=== PATIENT | female | born 1965 | race Caucasian/White ===

== ENCOUNTER → 2016-12-09 | Outpatient (REF) | payer BC ==
[~2016-12-09] MED LIST: /GLIP10TAB; BENI20TA11; DULO20CA; INSULIN 70/30; OXYB5TAB5; PRIL20CA; [UNRECOGNIZED DRUG - OTHER]
[2016-12-09 19:22] LABS: MEAN CORPUSCULAR HEMOGLOBIN 29.4 pg (27.0-33.0); RED CELL DISTRIBUTION WIDTH 13.3 % (11.5-14.5); WHITE BLOOD COUNT 5.3 K/mm3 (4.0-10.0)
[2016-12-09 19:40] LABS: ALBUMIN/GLOBULIN RATIO 1.33 (1.00-1.93); ALKALINE PHOSPHATASE 82 U/L (45-117); ALT/SGPT 65 U/L (12-78); ANION GAP 7 MEQ/L (8-16); AST/SGOT 71 U/L (15-37); BILIRUBIN,TOTAL 0.3 MG/DL (0.2-1.0); BLOOD UREA NITROGEN 22 MG/DL (7-18); CALCIUM LEVEL 9.6 MG/DL (8.5-10.1); CARBON DIOXIDE LEVEL 33 MEQ/L (21-32); CHLORIDE LEVEL 100 MEQ/L (98-107); CHOLESTEROL LEVEL 198 MG/DL (<200); CREATININE FOR GFR 0.78 MG/DL (0.55-1.02); FREE T4 1.14 NG/DL (0.76-1.46); GLOMERULAR FILTRATION RATE > 60.0 (>51); GLUCOSE, FASTING 296 MG/DL (70-105); POTASSIUM SERUM 5.1 MEQ/L (3.5-5.1); SODIUM LEVEL 140 MEQ/L (136-145); TRIGLYCERIDES LEVEL 734 MG/DL (<150)
== END ==
LOC: M SFHCADAM 16:28
PROVIDERS: ATTEND Family Medicine
DX: G47.33 Obstructive sleep apnea (adult) (pediatric) (principal); F32.9 Major depressive disorder, single episode, unspecified; E11.9 Type 2 diabetes mellitus without complications; E78.4 Other hyperlipidemia

== ENCOUNTER → 2017-01-17 | Outpatient (REF) | payer BC | LOC: M LAB REF 16:58 | DX: H60.8X1 Other otitis externa, right ear (principal) ==

== ENCOUNTER → 2017-02-14 | Outpatient (CLI) | payer BC ==
--- NOTE | 2017-02-14 13:55 | REP ---
CHEST X-RAY PA AND LATERAL: 02/14/2017. CLINICAL HISTORY: Bilateral pneumonia. Comparison 12/05/2013. FINDINGS: Lungs are adequately inflated. There is underlying interstitial chronic changes but new superimposed patchy nodular infiltrates right greater than left. No effusion. Heart is enlarged. There is some left atrial and ventricular enlargement. There is some vascular engorgement without karen edema or effusion. The aorta is mildly tortuous. Airway intact. Bony thorax without focal lesion. IMPRESSION: 1. Some chronic interstitial changes but with new and superimposed patchy nodular infiltrates bilaterally right greater than left. No effusion. 2. Cardiomegaly with left atrial and ventricular enlargement with venous hypertension. No karen edema. Signed by Keven Barker MD 02/14/2017 05:18 P
== END ==
LOC: M ADAMS 12:07
PROVIDERS: ATTEND Physician Assistant Medical
DX: J18.9 Pneumonia, unspecified organism (principal)

== ENCOUNTER → 2017-02-14 | Outpatient (REF) | payer BC | LOC: M SFHCADAM 11:55 | PROVIDERS: ATTEND Physician Assistant Medical | DX: J18.9 Pneumonia, unspecified organism (principal) ==

== ENCOUNTER → 2017-04-21 | Outpatient (REF) | payer BC ==
[2017-04-21 19:56] LABS: ALBUMIN 4.2 GM/DL (3.2-5.2); ALKALINE PHOSPHATASE 69 U/L (45-117); ALT/SGPT 58 U/L (12-78); ANION GAP 6 MEQ/L (8-16); AST/SGOT 41 U/L (15-37); BILIRUBIN,TOTAL 0.4 MG/DL (0.2-1.0); BLOOD UREA NITROGEN 26 MG/DL (7-18); CALCIUM LEVEL 9.3 MG/DL (8.5-10.1); CARBON DIOXIDE LEVEL 32 MEQ/L (21-32); CHLORIDE LEVEL 96 MEQ/L (98-107); CHOLESTEROL LEVEL 199 MG/DL (<200); GLOMERULAR FILTRATION RATE > 60.0 (>51); GLUCOSE, FASTING 243 MG/DL (70-105); POTASSIUM SERUM 5.1 MEQ/L (3.5-5.1); SODIUM LEVEL 134 MEQ/L (136-145); TOTAL PROTEIN 7.2 GM/DL (6.4-8.2); TRIGLYCERIDES LEVEL 633 MG/DL (<150)
== END ==
LOC: M SFHCADAM 16:51
PROVIDERS: ATTEND Physician Assistant
DX: E11.9 Type 2 diabetes mellitus without complications (principal); E78.4 Other hyperlipidemia

== ENCOUNTER → 2017-08-10 | Outpatient (REF) | payer BC ==
[2017-08-10 20:00] LABS: MEAN CORPUSCULAR HEMOGLOBIN 28.3 pg (27.0-33.0); MEAN CORPUSCULAR HGB CONC 31.9 g/dl (32.0-36.5); MEAN CORPUSCULAR VOLUME 88.8 fl (80.0-96.0); RED CELL DISTRIBUTION WIDTH 13.7 % (11.5-14.5); WHITE BLOOD COUNT 5.5 10^3/uL (4.0-10.0)
[2017-08-10 20:21] LABS: VITAMIN B12 LEVEL 391 PG/ML (247-911)
[2017-08-10 20:22] LABS: FOLATE 17.7 NG/ML (>5.4)
[2017-08-10 20:28] LABS: ALBUMIN 3.8 GM/DL (3.2-5.2); ALBUMIN/GLOBULIN RATIO 1.27 (1.00-1.93); ALKALINE PHOSPHATASE 74 U/L (45-117); ALT/SGPT 52 U/L (12-78); ANION GAP 11 MEQ/L (8-16); AST/SGOT 36 U/L (15-37); BILIRUBIN,TOTAL 0.3 MG/DL (0.2-1.0); BLOOD UREA NITROGEN 36 MG/DL (7-18); CALCIUM LEVEL 9.3 MG/DL (8.5-10.1); CARBON DIOXIDE LEVEL 27 MEQ/L (21-32); CHLORIDE LEVEL 98 MEQ/L (98-107); CHOLESTEROL LEVEL 191 MG/DL (<200); CREATININE FOR GFR 1.05 MG/DL (0.55-1.02); GLOMERULAR FILTRATION RATE 59.1 (>51); GLUCOSE, FASTING 302 MG/DL (70-105); POTASSIUM SERUM 4.5 MEQ/L (3.5-5.1); SODIUM LEVEL 136 MEQ/L (136-145); TOTAL PROTEIN 6.8 GM/DL (6.4-8.2); TRIGLYCERIDES LEVEL 696 MG/DL (<150)
== END ==
LOC: M SFHCADAM 15:44
PROVIDERS: ATTEND Family Medicine
DX: E11.9 Type 2 diabetes mellitus without complications (principal); F32.9 Major depressive disorder, single episode, unspecified; R53.83 Other fatigue; E55.9 Vitamin D deficiency, unspecified; E78.4 Other hyperlipidemia

== ENCOUNTER → 2018-01-24 | Outpatient (REF) | payer BC | LOC: M LAB REF 09:35 | DX: J02.9 Acute pharyngitis, unspecified (principal) | CPT/HCPCS: 87070 ==

== ENCOUNTER → 2018-04-12 | Outpatient (REF) | payer BC ==
[2018-04-12 19:48] LABS: APPEARANCE, URINE CLEAR (CLEAR); BACTERIA, URINE AUTO NEGATIVE (NEGATIVE); BILIRUBIN, URINE AUTO NEGATIVE (NEGATIVE); BLOOD, URINE BLOOD NEGATIVE (NEGATIVE); COLOR, URINE STRAW (YELLOW); GLUCOSE, URINE (UA) AUTO 3+ mg/dL (NEGATIVE); KETONE, URINE AUTO NEGATIVE (NEGATIVE); LEUKOCYTE ESTERASE, URINE AUTO NEGATIVE (NEGATIVE); NITRITE, URINE AUTO NEGATIVE (NEGATIVE); PROTEIN, URINE AUTO 1+ mg/dL (NEGATIVE); RBC, URINE AUTO 0 /HPF (0-3); SPECIFIC GRAVITY URINE AUTO 1.026 (1.002-1.035); SQUAMOUS EPITHELIAL CELL UR AU 0 /HPF (0-6); UROBILINOGEN, URINE AUTO 0.2 mg/dL (0.0-2.0); WBC, URINE AUTO 0 /HPF (0-3)
[2018-04-12 19:54] LABS: ALBUMIN/GLOBULIN RATIO 1.25 (1.00-1.93); ALKALINE PHOSPHATASE 100 U/L (45-117); ALT/SGPT 42 U/L (12-78); ANION GAP 9 MEQ/L (8-16); AST/SGOT 37 U/L (7-37); BILIRUBIN,TOTAL 0.3 MG/DL (0.2-1.0); BLOOD UREA NITROGEN 22 MG/DL (7-18); CALCIUM LEVEL 9.3 MG/DL (8.5-10.1); CARBON DIOXIDE LEVEL 30 MEQ/L (21-32); CHLORIDE LEVEL 96 MEQ/L (98-107); CREATININE FOR GFR 0.91 MG/DL (0.55-1.30); GLOMERULAR FILTRATION RATE > 60.0 (>51); POTASSIUM SERUM 4.2 MEQ/L (3.5-5.1); SODIUM LEVEL 135 MEQ/L (136-145); TOTAL PROTEIN 7.2 GM/DL (6.4-8.2)
[2018-04-12 20:01] LABS: ESTIMATED AVERAGE GLUCOSE 286 MG/DL (60-110); HEMOGLOBIN A1c 11.6 %
[2018-04-12 20:03] LABS: GLUCOSE, FASTING 439 MG/DL (70-100)
[2018-04-12 20:15] LABS: CREATININE, URINE 25.8 MG/DL; MAU/CREAT RATIO 1201.5 MCG/MG (0.0-30.0)
== END ==
LOC: M SFHCADAM 10:18
DX: N39.498 Other specified urinary incontinence (principal); E11.9 Type 2 diabetes mellitus without complications
CPT/HCPCS: 80053

== ENCOUNTER → 2018-09-30 | Outpatient (REF) | payer BC ==
[2018-10-01 20:08] LABS: CHLAMYDIA DNA AMPLIFICATION NEGATIVE (NEGATIVE); GC DNA AMPLIFICATION NEGATIVE (NEGATIVE)
== END ==
LOC: M SFHCLERA 17:41
DX: R30.0 Dysuria (principal)
CPT/HCPCS: 87086

== ENCOUNTER 2019-01-05 15:35 | Emergency (ER) | payer BC ==
[~2019-01-05] VITALS: Ht 165.1 cm; Wt 125.9 kg
[2019-01-05] MEDS ORDERED: KETOROLAC 60 MG/2 ML VIAL (J1885) IM ONE (16:30)
[2019-01-05] MEDS ORDERED: diazePAM 5 MG TAB PO ONE (16:30)
[2019-01-05] MEDS ORDERED: CITA-231 PO (16:40)
[2019-01-05] MEDS ORDERED: METF-877 PO (16:40)
[2019-01-05] MEDS ORDERED: FENO134C PO (16:40)
[2019-01-05] MEDS ORDERED: OLME1TAB15 PO (16:40)
[2019-01-05] MEDS ORDERED: LOPR1TAB6 PO (16:40)
[2019-01-05] MEDS ORDERED: BUPR300T34 PO (16:40)
[2019-01-05] MEDS ORDERED: BUSP5TA PO (16:40)
[2019-01-05] MEDS ORDERED: TRUL0.5I SC (16:40)
[2019-01-05] MEDS ORDERED: INSUH10VL SC (16:40)
[2019-01-05] MEDS ORDERED: ROSU20TA4 PO (16:40)
--- NOTE | 2019-01-05 17:20 | REP ---
Clinical: Trauma/fall. Technique: AP, lateral, bilateral oblique and coned-down views of the lumbosacral spine. Findings: Osteopenia and moderate degenerative changes are appreciated. No obvious acute fracture / compression injury or subluxation. Impression: No acute fracture / compression injury or subluxation identified. Electronically Signed by Rk Dobbs MD 01/05/2019 05:11 P
--- NOTE | 2019-01-05 17:21 | REP ---
Clinical: thoracic pain. Fall. Technique: AP, lateral, and swimmers views. Findings: Alignment and kyphosis is maintained. Vertebral bodies intact. No acute fracture / compression injury or subluxation. Impression: No acute fracture / compression injury or subluxation. Electronically Signed by Rk Dobbs MD 01/05/2019 05:13 P
[2019-01-05] MEDS ORDERED: IBUP-1022 PO (17:35)
[2019-01-05] MEDS ORDERED: VALI10TA PO (17:35)
[2019-01-05] MEDS ORDERED: VALI5TAB PO (17:37)
[2019-01-05 17:47] VITALS: BP 137/63
== END 2019-01-05 17:49 | disposition home or self-care (01) ==
LOC: M ED 15:35
DX: S20.229A Contusion of unspecified back wall of thorax, initial encounter (principal); S30.0XXA Contusion of lower back and pelvis, initial encounter; W17.89XA Other fall from one level to another, initial encounter; Y92.531 Health care provider office as the place of occurrence of the external cause; I10 Essential (primary) hypertension; E11.9 Type 2 diabetes mellitus without complications; F33.9 Major depressive disorder, recurrent, unspecified; F41.9 Anxiety disorder, unspecified; G47.33 Obstructive sleep apnea (adult) (pediatric); Z99.89 Dependence on other enabling machines and devices; Z79.899 Other long term (current) drug therapy; Z79.4 Long term (current) use of insulin; Z88.2 Allergy status to sulfonamides; Z91.040 Latex allergy status
CPT/HCPCS: 72070; 72110; 96372; 99284; J1885

== ENCOUNTER → 2020-04-14 | Outpatient (CLI) | payer BC ==
[~2020-04-14] MED LIST changes: +BUPR300T92 PO; +BUSP5TA PO; +CITA40TA6 PO; +CYMB1CAP4; -DULO20CA; +FENO134C PO; +IBUP-1022 PO; +INSUH10VL SC; +LOPR1TAB6 PO; +METF-877 PO; +OLME1TAB47 PO; +ROSU20TA5 PO; +TRUL0.5I SC; +VALI10TA PO; +VALI5TAB PO
--- NOTE | 2020-04-14 14:40 | REP ---
HIDA SCAN WITH GALLBLADDER EJECTION FRACTION: Following the intravenous administration of 6.6 mCi technetium 99m mebrofenin, multiple images of the right upper quadrant are performed every 5 minutes for a period of 1 hour. The gallbladder is visualized at 20 minutes postinjection. There is [id number] transit at 15 minutes postinjection. There is no scintigraphic evidence of cholecystitis. At the 1-hour josé luis, 8 ounces of Ensure Enlive is ingested and further imaging performed for 1 hour. Gallbladder activity is measured. Gallbladder ejection fraction is calculated to be 30%, which is below normal of 35% or greater. IMPRESSION: Mildly low gallbladder ejection fraction of 30%. Electronically Signed by Florencio Couch MD 04/14/2020 11:02 P
== END ==
LOC: M RAD 08:19
PROVIDERS: ATTEND Preventive Medicine Undersea and Hyperbaric Medicine
DX: R10.11 Right upper quadrant pain (principal)
CPT/HCPCS: 78227; A9537

== ENCOUNTER 2023-01-04 22:19 | Emergency (ER) | payer BC ==
[~2023-01-04] VITALS: Ht 165.1 cm; Wt 134.1 kg
[~2023-01-04 22:19] MED LIST changes: -FENO134C PO; +FENO134C20 PO; -OLME1TAB47 PO; +OLME1TAB53 PO
[2023-01-04] MEDS ORDERED: ONDANSETRON 4MG ORAL DISINTEGRATING TAB PO ONE (23:20)
[2023-01-04] MEDS ORDERED: KETOROLAC 60MG 2ML VIAL IM ONE (23:20)
[2023-01-04 23:49] LABS: ETHYL ALCOHOL (ETHANOL) < 0.003 % (0.000-0.010); HEMATOCRIT 47.2 % (36.0-47.0); HEMOGLOBIN 15.3 g/dl (12.0-15.5); MEAN CORPUSCULAR HEMOGLOBIN 28.2 pg (27.0-33.0); MEAN CORPUSCULAR HGB CONC 32.4 g/dl (32.0-36.5); MEAN CORPUSCULAR VOLUME 87.1 fl (80.0-96.0); PLATELET COUNT, AUTOMATED 243 10^3/uL (150-450); RED BLOOD COUNT 5.42 10^6/uL (4.00-5.40); WHITE BLOOD COUNT 9.4 10^3/uL (4.0-10.0)
[2023-01-04 23:51] LABS: ACETAMINOPHEN LEVEL < 2.0 UG/ML (10.0-20.0); SALICYLATE LEVEL < 3.0 MG/DL (<30)
[2023-01-04 23:55] LABS: ALBUMIN 3.7 G/DL (3.2-5.2); ALKALINE PHOSPHATASE 81 U/L (46-116); ALT/SGPT 40 U/L (7.0-40); AST/SGOT 39 U/L (<34); BILIRUBIN,DIRECT < 0.1 MG/DL (<0.4); BILIRUBIN,TOTAL 0.4 MG/DL (0.3-1.2); BLOOD UREA NITROGEN 32 MG/DL (9-23); CALCIUM LEVEL 10.2 MG/DL (8.5-10.1); CARBON DIOXIDE LEVEL 24 MMOL/L (20-31); CHLORIDE LEVEL 101 MMOL/L (98-107); CREATININE FOR GFR 0.96 MG/DL (0.55-1.30); GLOMERULAR FILTRATION RATE > 60.0 (>51); GLUCOSE, FASTING 254 MG/DL (60-100); POTASSIUM SERUM 4.2 MMOL/L (3.5-5.1); SODIUM LEVEL 135 MMOL/L (136-145); THYROID STIMULATING HORMONE 4.028 uIU/ML (0.55-4.78); TOTAL PROTEIN 6.7 G/DL (5.7-8.2)
[2023-01-05 00:02] LABS: AMPHETAMINES LEVEL URINE NEGATIVE (NEGATIVE); BARBITURATES URINE NEGATIVE (NEGATIVE); BENZODIAZEPINES URINE NEGATIVE (NEGATIVE); CANNABINOIDS URINE NEGATIVE (NEGATIVE); COCAINE METABOLITE URINE NEGATIVE (NEGATIVE); METHADONE URINE NEGATIVE (NEGATIVE); OPIATES URINE NEGATIVE (NEGATIVE); PHENCYCLIDINE URINE NEGATIVE (NEGATIVE)
[2023-01-05] MEDS ORDERED: OLME1TAB53 PO (00:55)
[2023-01-05] MEDS ORDERED: BUSP10TA PO (00:55)
[2023-01-05] MEDS ORDERED: NYST1POW9 TOP (00:55)
[2023-01-05] MEDS ORDERED: CELE40TA PO (00:55)
[2023-01-05] MEDS ORDERED: OMEP-173 PO (00:55)
[2023-01-05] MEDS ORDERED: METO100T5 PO (00:55)
[2023-01-05] MEDS ORDERED: BASA100I SC (00:55)
[2023-01-05] MEDS ORDERED: HOME MED LIST COMPLETE! XX SCH (00:55)
[2023-01-05] MEDS ORDERED: ROSU40TA4 PO (00:55)
[2023-01-05] MEDS ORDERED: OXYB10TA23 PO (00:55)
[2023-01-05] MEDS ORDERED: FARX1TAB5 PO (00:55)
[2023-01-05] MEDS ORDERED: FENO145T7 PO (00:55)
[2023-01-05] MEDS ORDERED: DULA3PEN SC (00:55)
[2023-01-05 01:54] LABS: APPEARANCE, URINE CLEAR (CLEAR); BACTERIA, URINE AUTO NEGATIVE (NEGATIVE); BILIRUBIN, URINE AUTO NEGATIVE (NEGATIVE); BLOOD, URINE BLOOD NEGATIVE (NEGATIVE); COLOR, URINE YELLOW (YELLOW); GLUCOSE, URINE (UA) AUTO 3+ mg/dL (NEGATIVE); KETONE, URINE AUTO TRACE mg/dL (NEGATIVE); LEUKOCYTE ESTERASE, URINE AUTO NEGATIVE (NEGATIVE); NITRITE, URINE AUTO NEGATIVE (NEGATIVE); PROTEIN, URINE AUTO 2+ mg/dL (NEGATIVE); RBC, URINE AUTO 1 /HPF (0-3); SPECIFIC GRAVITY URINE AUTO 1.025 (1.002-1.035); SQUAMOUS EPITHELIAL CELL UR AU 1 /HPF (0-6); UROBILINOGEN, URINE AUTO 0.2 mg/dL (0.0-2.0); WBC, URINE AUTO 1 /HPF (0-3)
[2023-01-05] MEDS ORDERED: diphenhydrAMINE 25MG CAP PO ONE (02:00)
[2023-01-05] MEDS ORDERED: LEVEMIR (INSULIN DETEMIR) 1 UNITS/0.01ML SC SCH (09:00)
[2023-01-05] MEDS ORDERED: METOPROLOL TART 50 MG TAB PO SCH (09:00)
[2023-01-05] MEDS ORDERED: OLMESARTAN MEDOXOMIL 20 MG TAB (BENICAR) PO SCH (09:00)
[2023-01-05] MEDS ORDERED: oxyBUTYnin *DITROPAN XL* 5 MG TABCR PO SCH (09:00)
[2023-01-05] MEDS ORDERED: OMEPRAZOLE 20MG CAP PO SCH (09:00)
[2023-01-05] MEDS: INSULIN LISPRO (NovoLOG) PER UNIT SC SCH ×2 (12:17→18:30)
[2023-01-05 19:39] VITALS: BP 139/67
[2023-01-05] MEDS ORDERED: ROSUVASTATIN 10 MG TAB (CRESTOR) PO SCH (21:00)
[2023-01-05] MEDS ORDERED: FENOFIBRATE 145MG TABLET (TRICOR) PO SCH (21:00)
[2023-01-05] MEDS ORDERED: INSULIN LISPRO (NovoLOG) PER UNIT SC SCH (21:00)
[2023-01-05] MEDS ORDERED: buPROPion **XL** TABLET 150MG (WELLBUTRIN XL) PO SCH (21:00)
== END 2023-01-05 19:48 ==
LOC: M ED 22:19
DX: R45.851 Suicidal ideations (principal); E11.9 Type 2 diabetes mellitus without complications; Z91.14 Patient's other noncompliance with medication regimen; G43.909 Migraine, unspecified, not intractable, without status migrainosus; F32.9 Major depressive disorder, single episode, unspecified; Z91.51 Personal history of suicidal behavior
CPT/HCPCS: 80048; 80076; 80143; 80307; 81001; 82077; 84443; 85027; 87635; 93005; 96372; 99284; J1815; J1885

== ENCOUNTER 2023-03-16 15:28 | Inpatient (IN) | payer BC ==
[~2023-03-16] VITALS: Ht 165.1 cm; Wt 128.6 kg
[~2023-03-16 15:28] MED LIST changes: +BASA100I SC; +BUSP10TA PO; +CELE40TA PO; +DULA3PEN SC; +FARX1TAB5 PO; +FENO145T7 PO; +METO100T5 PO; +NYST1POW9 TOP; +OMEP-173 PO; +OXYB10TA23 PO; +ROSU40TA4 PO
[2023-03-16] MEDS ORDERED: DULO-34 (16:16)
[2023-03-16] MEDS ORDERED: MIRT1TAB (16:16)
[2023-03-16 16:37] LABS: HEMATOCRIT 44.5 % (36.0-47.0); HEMOGLOBIN 14.1 g/dl (12.0-15.5); MEAN CORPUSCULAR HEMOGLOBIN 27.9 pg (27.0-33.0); MEAN CORPUSCULAR HGB CONC 31.7 g/dl (32.0-36.5); MEAN CORPUSCULAR VOLUME 87.9 fl (80.0-96.0); PLATELET COUNT, AUTOMATED 189 10^3/uL (150-450); RED BLOOD COUNT 5.06 10^6/uL (4.00-5.40); WHITE BLOOD COUNT 5.3 10^3/uL (4.0-10.0)
[2023-03-16 17:06] LABS: AMPHETAMINES LEVEL URINE NEGATIVE (NEGATIVE); BARBITURATES URINE NEGATIVE (NEGATIVE); BENZODIAZEPINES URINE NEGATIVE (NEGATIVE); CANNABINOIDS URINE NEGATIVE (NEGATIVE); COCAINE METABOLITE URINE NEGATIVE (NEGATIVE); METHADONE URINE NEGATIVE (NEGATIVE); OPIATES URINE NEGATIVE (NEGATIVE); PHENCYCLIDINE URINE NEGATIVE (NEGATIVE)
[2023-03-16 17:08] LABS: ETHYL ALCOHOL (ETHANOL) < 0.003 % (0.000-0.010)
[2023-03-16 17:09] LABS: ACETAMINOPHEN LEVEL < 2.0 UG/ML (10.0-20.0); SALICYLATE LEVEL < 3.0 MG/DL (<30)
[2023-03-16 17:14] LABS: ALBUMIN 3.5 G/DL (3.2-5.2); ALKALINE PHOSPHATASE 84 U/L (46-116); ALT/SGPT 35 U/L (7.0-40); AST/SGOT 45 U/L (<34); BILIRUBIN,DIRECT 0.1 MG/DL (<0.4); BILIRUBIN,TOTAL 0.4 MG/DL (0.3-1.2); BLOOD UREA NITROGEN 31 MG/DL (9-23); CALCIUM LEVEL 10.3 MG/DL (8.5-10.1); CARBON DIOXIDE LEVEL 28 MMOL/L (20-31); CHLORIDE LEVEL 104 MMOL/L (98-107); CREATININE FOR GFR 0.58 MG/DL (0.55-1.30); GLOMERULAR FILTRATION RATE > 60.0 (>51); GLUCOSE, FASTING 419 MG/DL (60-100); POTASSIUM SERUM 4.6 MMOL/L (3.5-5.1); SODIUM LEVEL 135 MMOL/L (136-145); THYROID STIMULATING HORMONE 1.465 uIU/ML (0.55-4.78); TOTAL PROTEIN 6.8 G/DL (5.7-8.2)
[2023-03-16 17:41] LABS: HEMOGLOBIN A1c 10.6 % (4.0-6.0)
[2023-03-16] MEDS ORDERED: ACETAMINOPHEN TAB 650MG DOSE (2X325MG) PO ONE (20:25)
[2023-03-16] MEDS ORDERED: traZODone 50 MG TAB PO PRN (20:50)
[2023-03-16] MEDS ORDERED: OLANZapine ORAL DISINTEGRATING TAB 5MG PO PRN (20:50)
[2023-03-16] MEDS ORDERED: MOM 30ML SUSPENSION UDC PO PRN (20:50)
[2023-03-16] MEDS ORDERED: MAALOX 30 ML SUSP *UDC PO PRN (20:50)
[2023-03-16] MEDS: METOPROLOL TART 50 MG TAB PO SCH (21:00)
[2023-03-16] MEDS ORDERED: LEVEMIR (INSULIN DETEMIR) 1 UNITS/0.01ML SC SCH (21:00)
[2023-03-16] MEDS: NYSTATIN 100,000 UNITS/GM TOPICAL PWD 15GM TOP SCH (21:00)
[2023-03-16] MEDS ORDERED: GLUCOSE 4GM CHEW TABLET PO PRN ×2 (22:10→22:20)
[2023-03-16] MEDS ORDERED: DEXTROSE 50% 50ML SYRINGE IV PRN ×2 (22:10→22:20)
[2023-03-16] MEDS ORDERED: GLUCAGON INJ 1MG VIAL SC PRN ×2 (22:10→22:20)
[2023-03-16] MEDS ORDERED: LEVEMIR (INSULIN DETEMIR) 1 UNITS/0.01ML SC ONE (22:10)
[2023-03-16] MEDS ORDERED: OXYB5TAB10 PO (22:28)
[2023-03-16] MEDS ORDERED: INSUH10VL SC (22:28)
[2023-03-16] MEDS ORDERED: DULO-34 PO (22:28)
[2023-03-16] MEDS ORDERED: HYDR50TA70 PO (22:28)
[2023-03-16] MEDS ORDERED: MIRT1TAB PO (22:28)
[2023-03-16] MEDS ORDERED: HOME MED LIST COMPLETE! XX SCH (22:30)
[2023-03-16] MEDS: INSULIN LISPRO (NovoLOG) PER UNIT SC SCH (22:58)
[2023-03-16 23:49] VITALS: BP 158/80
[2023-03-17 05:36] VITALS: BP 148/82
[2023-03-17] MEDS: OMEPRAZOLE 20MG CAP PO SCH ×2 (06:05→11:53)
[2023-03-17] MEDS: oxyBUTYnin 5 MG TAB PO SCH ×2 (06:06→11:53)
[2023-03-17] MEDS: INSULIN LISPRO (NovoLOG) PER UNIT SC SCH ×5 (06:42→21:27)
[2023-03-17] MEDS ORDERED: INSULIN LISPRO (NovoLOG) PER UNIT SC SCH ×5 (07:30→21:00)
[2023-03-17] MEDS: DAPAGLIFLOZIN PROPANEDIOL 10MG TABLET (FARXIGA) PO SCH (08:47)
[2023-03-17] MEDS: PILL CUTTER 1 EACH XX PRN (08:47)
[2023-03-17] MEDS: METOPROLOL TART 50 MG TAB PO SCH ×2 (08:49→21:22)
[2023-03-17] MEDS: metFORMIN (GLUCOPHAGE) 1000MG TABLET PO SCH ×2 (08:50→17:26)
[2023-03-17] MEDS: NYSTATIN 100,000 UNITS/GM TOPICAL PWD 15GM TOP SCH ×2 (08:51→21:00)
[2023-03-17] MEDS: FUROSEMIDE 20 MG TAB PO SCH (13:28)
[2023-03-17] MEDS: CLOBETASOL PROP 0.05% OINT 30 GM TOP SCH ×2 (15:32→21:21)
[2023-03-17] MEDS: CALCIPOTRIENE CREAM 0.005% 60GM TOP SCH ×2 (15:34→21:20)
[2023-03-17 17:23] VITALS: BP 150/84
[2023-03-17] MEDS: ROSUVASTATIN 10 MG TAB (CRESTOR) PO SCH (17:25)
[2023-03-17] MEDS: DULoxetine 20MG CAP (CYMBALTA) PO SCH (17:26)
[2023-03-17] MEDS: ACETAMINOPHEN TAB 650MG DOSE (2X325MG) PO PRN (17:27)
[2023-03-17] MEDS: OLMESARTAN MEDOXOMIL 20 MG TAB (BENICAR) PO SCH (17:27)
[2023-03-17] MEDS ORDERED: LEVEMIR (INSULIN DETEMIR) 1 UNITS/0.01ML SC SCH (21:00)
[2023-03-17] MEDS: BREXPIPRAZOLE 0.5MG TABLET (REXULTI) PO SCH (21:21)
[2023-03-17] MEDS: MIRTAZAPINE 7.5MG PER 1/2 TABLET PO PRN (21:22)
[2023-03-18] MEDS: oxyBUTYnin 5 MG TAB PO SCH ×2 (06:10→11:10)
[2023-03-18] MEDS: OMEPRAZOLE 20MG CAP PO SCH ×2 (06:10→11:10)
[2023-03-18] MEDS: INSULIN LISPRO (NovoLOG) PER UNIT SC SCH ×7 (06:59→21:05)
[2023-03-18 07:00] VITALS: BP 152/90
[2023-03-18] MEDS: metFORMIN (GLUCOPHAGE) 1000MG TABLET PO SCH ×2 (07:37→17:20)
[2023-03-18 07:38] LABS: BLOOD UREA NITROGEN 28 MG/DL (9-23); CALCIUM LEVEL 9.3 MG/DL (8.5-10.1); CARBON DIOXIDE LEVEL 29 MMOL/L (20-31); CHLORIDE LEVEL 103 MMOL/L (98-107); CHOLESTEROL LEVEL 207 MG/DL (<200); CHOLESTEROL RISK RATIO 8.66 (<5); CREATININE FOR GFR 0.62 MG/DL (0.55-1.30); GLOMERULAR FILTRATION RATE > 60.0 (>51); GLUCOSE, FASTING 247 MG/DL (60-100); HDL CHOLESTEROL 23.9 MG/DL (>40); NON-HDL-C 183.1 MG/DL; POTASSIUM SERUM 4.5 MMOL/L (3.5-5.1); SODIUM LEVEL 140 MMOL/L (136-145); TRIGLYCERIDES LEVEL 703 MG/DL (<150)
[2023-03-18] MEDS: FUROSEMIDE 20 MG TAB PO SCH (08:13)
[2023-03-18] MEDS: METOPROLOL TART 50 MG TAB PO SCH ×2 (08:14→21:04)
[2023-03-18] MEDS: DAPAGLIFLOZIN PROPANEDIOL 10MG TABLET (FARXIGA) PO SCH (08:15)
[2023-03-18] MEDS: PILL CUTTER 1 EACH XX PRN (08:15)
[2023-03-18] MEDS: CLOBETASOL PROP 0.05% OINT 30 GM TOP SCH ×2 (08:17→21:05)
[2023-03-18] MEDS: NYSTATIN 100,000 UNITS/GM TOPICAL PWD 15GM TOP SCH ×2 (08:21→20:59)
[2023-03-18] MEDS: CALCIPOTRIENE CREAM 0.005% 60GM TOP SCH ×2 (08:23→21:06)
[2023-03-18] MEDS: GABAPENTIN 100 MG CAP PO SCH ×3 (11:10→21:04)
[2023-03-18 17:17] VITALS: BP 170/98
[2023-03-18] MEDS: ROSUVASTATIN 10 MG TAB (CRESTOR) PO SCH (17:18)
[2023-03-18] MEDS: DULoxetine 20MG CAP (CYMBALTA) PO SCH (17:19)
[2023-03-18] MEDS: OLMESARTAN MEDOXOMIL 20 MG TAB (BENICAR) PO SCH (17:19)
[2023-03-18 18:00] VITALS: BP 160/86
[2023-03-18] MEDS: BREXPIPRAZOLE 0.5MG TABLET (REXULTI) PO SCH (21:04)
[2023-03-18] MEDS: MIRTAZAPINE 7.5MG PER 1/2 TABLET PO PRN (21:05)
[2023-03-18] MEDS: LEVEMIR (INSULIN DETEMIR) 1 UNITS/0.01ML SC SCH (21:05)
[2023-03-19] MEDS: OMEPRAZOLE 20MG CAP PO SCH ×2 (06:17→12:05)
[2023-03-19] MEDS: oxyBUTYnin 5 MG TAB PO SCH ×2 (06:17→12:05)
[2023-03-19 06:22] VITALS: BP 146/71
[2023-03-19] MEDS: INSULIN LISPRO (NovoLOG) PER UNIT SC SCH ×7 (07:30→21:31)
[2023-03-19] MEDS: PILL CUTTER 1 EACH XX PRN (07:32)
[2023-03-19] MEDS: metFORMIN (GLUCOPHAGE) 1000MG TABLET PO SCH ×2 (07:34→17:05)
[2023-03-19] MEDS: DAPAGLIFLOZIN PROPANEDIOL 10MG TABLET (FARXIGA) PO SCH (07:34)
[2023-03-19] MEDS: METOPROLOL TART 50 MG TAB PO SCH ×2 (07:35→21:28)
[2023-03-19] MEDS: FUROSEMIDE 20 MG TAB PO SCH (07:36)
[2023-03-19] MEDS: GABAPENTIN 100 MG CAP PO SCH ×3 (07:36→21:08)
[2023-03-19] MEDS: NYSTATIN 100,000 UNITS/GM TOPICAL PWD 15GM TOP SCH ×2 (07:36→21:00)
[2023-03-19] MEDS: CALCIPOTRIENE CREAM 0.005% 60GM TOP SCH ×2 (07:37→21:09)
[2023-03-19] MEDS: CLOBETASOL PROP 0.05% OINT 30 GM TOP SCH ×2 (07:37→21:09)
[2023-03-19 16:31] VITALS: BP 106/58
[2023-03-19 16:39] VITALS: BP 121/56
[2023-03-19] MEDS: ROSUVASTATIN 10 MG TAB (CRESTOR) PO SCH (17:05)
[2023-03-19] MEDS: DULoxetine 20MG CAP (CYMBALTA) PO SCH (17:05)
[2023-03-19 18:17] VITALS: BP 133/70
[2023-03-19] MEDS: OLMESARTAN MEDOXOMIL 20 MG TAB (BENICAR) PO SCH (18:19)
[2023-03-19] MEDS: LEVEMIR (INSULIN DETEMIR) 1 UNITS/0.01ML SC SCH (21:07)
[2023-03-19] MEDS: BREXPIPRAZOLE 0.5MG TABLET (REXULTI) PO SCH (21:08)
[2023-03-19] MEDS: MIRTAZAPINE 7.5MG PER 1/2 TABLET PO PRN (21:32)
[2023-03-20] MEDS: OMEPRAZOLE 20MG CAP PO SCH ×2 (06:16→12:02)
[2023-03-20] MEDS: oxyBUTYnin 5 MG TAB PO SCH ×2 (06:16→12:03)
[2023-03-20 06:41] VITALS: BP 169/80
[2023-03-20] MEDS: ACETAMINOPHEN TAB 650MG DOSE (2X325MG) PO PRN (07:22)
[2023-03-20] MEDS: INSULIN LISPRO (NovoLOG) PER UNIT SC SCH ×7 (07:25→21:09)
[2023-03-20] MEDS: metFORMIN (GLUCOPHAGE) 1000MG TABLET PO SCH ×2 (07:26→17:15)
[2023-03-20] MEDS: NYSTATIN 100,000 UNITS/GM TOPICAL PWD 15GM TOP SCH ×2 (08:17→21:00)
[2023-03-20] MEDS: CALCIPOTRIENE CREAM 0.005% 60GM TOP SCH ×2 (08:20→21:10)
[2023-03-20] MEDS: DAPAGLIFLOZIN PROPANEDIOL 10MG TABLET (FARXIGA) PO SCH (08:20)
[2023-03-20] MEDS: CLOBETASOL PROP 0.05% OINT 30 GM TOP SCH ×2 (08:20→21:10)
[2023-03-20] MEDS: PILL CUTTER 1 EACH XX PRN (08:20)
[2023-03-20] MEDS: FUROSEMIDE 20 MG TAB PO SCH (08:21)
[2023-03-20] MEDS: GABAPENTIN 100 MG CAP PO SCH ×3 (08:21→21:11)
[2023-03-20] MEDS: METOPROLOL TART 50 MG TAB PO SCH ×2 (08:21→21:12)
[2023-03-20 17:05] VITALS: BP 149/77
[2023-03-20] MEDS: OLMESARTAN MEDOXOMIL 20 MG TAB (BENICAR) PO SCH (17:14)
[2023-03-20] MEDS: DULoxetine 20MG CAP (CYMBALTA) PO SCH (17:15)
[2023-03-20] MEDS: ROSUVASTATIN 10 MG TAB (CRESTOR) PO SCH (17:15)
[2023-03-20] MEDS: LEVEMIR (INSULIN DETEMIR) 1 UNITS/0.01ML SC SCH (21:09)
[2023-03-20] MEDS: MIRTAZAPINE 7.5MG PER 1/2 TABLET PO PRN (21:11)
[2023-03-20] MEDS: BREXPIPRAZOLE 0.5MG TABLET (REXULTI) PO SCH (21:11)
[2023-03-21 06:21] VITALS: BP 160/90
[2023-03-21] MEDS: OMEPRAZOLE 20MG CAP PO SCH ×2 (06:33→12:20)
[2023-03-21] MEDS: oxyBUTYnin 5 MG TAB PO SCH ×2 (06:33→12:20)
[2023-03-21] MEDS: INSULIN LISPRO (NovoLOG) PER UNIT SC SCH ×7 (06:48→21:20)
[2023-03-21] MEDS: DAPAGLIFLOZIN PROPANEDIOL 10MG TABLET (FARXIGA) PO SCH (08:32)
[2023-03-21] MEDS: FUROSEMIDE 20 MG TAB PO SCH (08:32)
[2023-03-21] MEDS: GABAPENTIN 100 MG CAP PO SCH (08:32)
[2023-03-21] MEDS: METOPROLOL TART 50 MG TAB PO SCH ×2 (08:32→21:13)
[2023-03-21] MEDS: metFORMIN (GLUCOPHAGE) 1000MG TABLET PO SCH ×2 (08:32→17:11)
[2023-03-21] MEDS: CLOBETASOL PROP 0.05% OINT 30 GM TOP SCH ×2 (08:33→21:11)
[2023-03-21] MEDS: CALCIPOTRIENE CREAM 0.005% 60GM TOP SCH ×2 (08:33→21:12)
[2023-03-21] MEDS: NYSTATIN 100,000 UNITS/GM TOPICAL PWD 15GM TOP SCH ×2 (08:33→21:00)
[2023-03-21] MEDS: GABAPENTIN 400MG CAP PO SCH ×2 (16:31→21:12)
[2023-03-21] MEDS: DULoxetine 20MG CAP (CYMBALTA) PO SCH (17:11)
[2023-03-21] MEDS: ROSUVASTATIN 10 MG TAB (CRESTOR) PO SCH (17:11)
[2023-03-21] MEDS: OLMESARTAN MEDOXOMIL 20 MG TAB (BENICAR) PO SCH (17:13)
[2023-03-21 18:00] VITALS: BP 140/80
[2023-03-21] MEDS: BREXPIPRAZOLE 0.5MG TABLET (REXULTI) PO SCH (21:12)
[2023-03-21] MEDS: MIRTAZAPINE 7.5MG PER 1/2 TABLET PO PRN (21:12)
[2023-03-21] MEDS: LEVEMIR (INSULIN DETEMIR) 1 UNITS/0.01ML SC SCH (21:19)
[2023-03-22] MEDS: OMEPRAZOLE 20MG CAP PO SCH ×2 (06:22→11:23)
[2023-03-22] MEDS: oxyBUTYnin 5 MG TAB PO SCH ×2 (06:23→11:23)
[2023-03-22 06:31] VITALS: BP 140/78
[2023-03-22] MEDS ORDERED: FURO20TA2 PO (06:39)
[2023-03-22] MEDS ORDERED: REXU1TAB3 PO (06:39)
[2023-03-22] MEDS ORDERED: CALC0.009 TOP (06:39)
[2023-03-22] MEDS ORDERED: GABA600T4 PO (06:39)
[2023-03-22] MEDS ORDERED: Clobetasol Propionate 0.05% TOP (06:39)
[2023-03-22] MEDS: INSULIN LISPRO (NovoLOG) PER UNIT SC SCH ×4 (06:55→11:27)
[2023-03-22 07:37] VITALS: BP 140/78
[2023-03-22] MEDS: METOPROLOL TART 50 MG TAB PO SCH (07:37)
[2023-03-22] MEDS: metFORMIN (GLUCOPHAGE) 1000MG TABLET PO SCH (07:37)
[2023-03-22] MEDS: CALCIPOTRIENE CREAM 0.005% 60GM TOP SCH (07:38)
[2023-03-22] MEDS: DAPAGLIFLOZIN PROPANEDIOL 10MG TABLET (FARXIGA) PO SCH (07:38)
[2023-03-22] MEDS: GABAPENTIN 400MG CAP PO SCH (07:38)
[2023-03-22] MEDS: CLOBETASOL PROP 0.05% OINT 30 GM TOP SCH (07:38)
[2023-03-22] MEDS: NYSTATIN 100,000 UNITS/GM TOPICAL PWD 15GM TOP SCH (07:38)
[2023-03-22] MEDS: FUROSEMIDE 20 MG TAB PO SCH (07:38)
== END 2023-03-22 11:35 | disposition home or self-care (01) | DRG 751 ==
LOC: M ED 15:28 → M ED INP 20:46 → M PSY 23:30
PROVIDERS: ADMIT Psychiatry & Neurology Psychiatry; ATTEND Psychiatry & Neurology Psychiatry
PROC: B246ZZZ Ultrasonography of Right and Left Heart (ICD-10-PCS; principal; 2023-03-17)
DX: F33.1 Major depressive disorder, recurrent, moderate (principal); F41.9 Anxiety disorder, unspecified; R45.851 Suicidal ideations; Z56.6 Other physical and mental strain related to work; E78.5 Hyperlipidemia, unspecified; I10 Essential (primary) hypertension; G47.33 Obstructive sleep apnea (adult) (pediatric); K21.9 Gastro-esophageal reflux disease without esophagitis; K76.0 Fatty (change of) liver, not elsewhere classified; E11.9 Type 2 diabetes mellitus without complications; E66.9 Obesity, unspecified; L40.9 Psoriasis, unspecified; Z79.4 Long term (current) use of insulin; Z79.84 Long term (current) use of oral hypoglycemic drugs; Z79.899 Other long term (current) drug therapy; Z88.2 Allergy status to sulfonamides; Z91.040 Latex allergy status; Z20.822 Contact with and (suspected) exposure to COVID-19

== ENCOUNTER 2023-12-05 07:12 | Inpatient (IN) | payer BC ==
[~2023-12-05] VITALS: Ht 162.6 cm; Wt 124.7 kg
[~2023-12-05 07:12] MED LIST changes: +CALC0.0017 TOP; +Clobetasol Propionate 0.05% TOP; +DIAZ-654 PO; +DULO-34; +DULO-34 PO; +FURO20TA2 PO; +GABA600T4 PO; +HYDR50TA70 PO; +MIRT1TAB; +MIRT1TAB PO; +OXYB5TAB14 PO; +REXU1TAB3 PO; -ROSU20TA5 PO; +ROSU20TA61 PO; -VALI10TA PO
[2023-12-05] MEDS ORDERED: MED REC IN PROGRESS XX SCH (08:45)
[2023-12-05 09:11] LABS: HEMATOCRIT 47.6 % (36.0-47.0); MEAN CORPUSCULAR HEMOGLOBIN 25.6 pg (27.0-33.0); MEAN CORPUSCULAR HGB CONC 31.5 g/dl (32.0-36.5); MEAN CORPUSCULAR VOLUME 81.1 fl (80.0-96.0); PLATELET COUNT, AUTOMATED 200 10^3/uL (150-450); RED BLOOD COUNT 5.87 10^6/uL (4.00-5.40); WHITE BLOOD COUNT 5.6 10^3/uL (4.0-10.0)
[2023-12-05 09:35] LABS: AMPHETAMINES LEVEL URINE NEGATIVE (NEGATIVE); BARBITURATES URINE NEGATIVE (NEGATIVE); BENZODIAZEPINES URINE NEGATIVE (NEGATIVE); COCAINE METABOLITE URINE NEGATIVE (NEGATIVE); METHADONE URINE NEGATIVE (NEGATIVE)
[2023-12-05 09:36] LABS: CANNABINOIDS URINE NEGATIVE (NEGATIVE); ETHYL ALCOHOL (ETHANOL) < 0.003 % (0.000-0.010); OPIATES URINE NEGATIVE (NEGATIVE); PHENCYCLIDINE URINE NEGATIVE (NEGATIVE)
[2023-12-05 09:38] LABS: ALKALINE PHOSPHATASE 110 U/L (46-116); ALT/SGPT 19 U/L (7.0-40); AST/SGOT 20 U/L (<34); BILIRUBIN,DIRECT < 0.1 MG/DL (<0.4); BILIRUBIN,TOTAL 0.4 MG/DL (0.3-1.2); BLOOD UREA NITROGEN 21 MG/DL (9-23); CALCIUM LEVEL 9.7 MG/DL (8.5-10.1); CARBON DIOXIDE LEVEL 26 MMOL/L (20-31); CHLORIDE LEVEL 101 MMOL/L (98-107); GLOMERULAR FILTRATION RATE > 60.0 (>51); GLUCOSE, FASTING 348 MG/DL (60-100); POTASSIUM SERUM 4.5 MMOL/L (3.5-5.1); SALICYLATE LEVEL < 3.0 MG/DL (<30); SODIUM LEVEL 136 MMOL/L (136-145); TOTAL PROTEIN 6.5 G/DL (5.7-8.2)
[2023-12-05 09:39] LABS: THYROID STIMULATING HORMONE 2.361 uIU/ML (0.55-4.78)
[2023-12-05 10:16] LABS: INR 1.13; PROTHROMBIN TIME 14.2 SECONDS (12.5-14.5)
[2023-12-05] MEDS ORDERED: WARF4TAB52 PO (13:13)
[2023-12-05] MEDS ORDERED: REXU1TAB4 PO (13:13)
[2023-12-05] MEDS ORDERED: CALC0.0017 TOP (13:16)
[2023-12-05] MEDS ORDERED: VITA100093 PO (13:23)
[2023-12-05] MEDS ORDERED: HOME MED LIST COMPLETE! XX SCH (13:25)
[2023-12-05 14:06] LABS: APPEARANCE, URINE CLEAR (CLEAR); BACTERIA, URINE AUTO NEGATIVE (NEGATIVE); BILIRUBIN, URINE AUTO NEGATIVE (NEGATIVE); BLOOD, URINE BLOOD NEGATIVE (NEGATIVE); COLOR, URINE YELLOW (YELLOW); GLUCOSE, URINE (UA) AUTO 3+ mg/dL (NEGATIVE); KETONE, URINE AUTO 1+ mg/dL (NEGATIVE); LEUKOCYTE ESTERASE, URINE AUTO NEGATIVE (NEGATIVE); NITRITE, URINE AUTO NEGATIVE (NEGATIVE); PROTEIN, URINE AUTO 3+ mg/dL (NEGATIVE); RBC, URINE AUTO 1 /HPF (0-3); SPECIFIC GRAVITY URINE AUTO 1.035 (1.002-1.035); SQUAMOUS EPITHELIAL CELL UR AU 0 /HPF (0-6); UROBILINOGEN, URINE AUTO 0.2 mg/dL (0.0-2.0); WBC, URINE AUTO 1 /HPF (0-3)
[2023-12-06] MEDS: hydrOXYzine 50 MG TAB PO ONE (02:08)
[2023-12-06] MEDS: ONDANSETRON 4MG ORAL DISINTEGRATING TAB PO ONE ×2 (04:14→10:58)
[2023-12-06] MEDS: oxyBUTYnin 5 MG TAB PO SCH (08:00)
[2023-12-06] MEDS ORDERED: PILL CUTTER 1 EACH XX PRN (08:05)
[2023-12-06] MEDS ORDERED: OMEPRAZOLE 20MG CAP PO SCH (09:00)
[2023-12-06] MEDS ORDERED: oxyBUTYnin 5 MG TAB PO SCH (09:00)
[2023-12-06] MEDS ORDERED: WARFARIN SOD 5MG TAB PO SCH (09:00)
[2023-12-06] MEDS: DAPAGLIFLOZIN PROPANEDIOL 10MG TABLET (FARXIGA) PO SCH (10:36)
[2023-12-06] MEDS: OMEPRAZOLE 20MG CAP PO SCH (10:36)
[2023-12-06] MEDS: GABAPENTIN 300 MG CAP PO SCH (10:36)
[2023-12-06] MEDS: METOPROLOL TART 50 MG TAB PO SCH (10:36)
[2023-12-06] MEDS: metFORMIN (GLUCOPHAGE) 1000MG TABLET PO SCH (10:36)
[2023-12-06] MEDS: LEVEMIR (INSULIN DETEMIR) 1 UNITS/0.01ML SC SCH (10:37)
[2023-12-06] MEDS: ACETAMINOPHEN TAB 650MG DOSE (2X325MG) PO ONE (10:59)
[2023-12-06 12:31] LABS: INR 1.09; PROTHROMBIN TIME 13.8 SECONDS (12.5-14.5)
[2023-12-06] MEDS: INSULIN LISPRO (NovoLOG) PER UNIT SC SCH (12:40)
[2023-12-06] MEDS: WARFARIN SOD 2MG TAB PO SCH (17:47)
[2023-12-06] MEDS: WARFARIN SOD 5MG TAB PO SCH (17:48)
[2023-12-06] MEDS: ROSUVASTATIN 10 MG TAB (CRESTOR) PO SCH (17:49)
[2023-12-06] MEDS: DULoxetine 20MG CAP (CYMBALTA) PO SCH (17:49)
[2023-12-06] MEDS: OLMESARTAN MEDOXOMIL 20 MG TAB (BENICAR) PO SCH (17:49)
[2023-12-06] MEDS ORDERED: OLMESARTAN MEDOXOMIL 20 MG TAB (BENICAR) PO SCH (21:00)
[2023-12-06] MEDS: MIRTAZAPINE 7.5MG PER 1/2 TABLET PO SCH (21:05)
[2023-12-06] MEDS: hydrOXYzine 50 MG TAB PO SCH (21:05)
[2023-12-06] MEDS: FENOFIBRATE 145MG TABLET (TRICOR) PO SCH (21:06)
[2023-12-07 09:59] LABS: INR 1.04; PROTHROMBIN TIME 13.3 SECONDS (12.5-14.5)
[2023-12-07] MEDS ORDERED: DEXTROSE 50% 50ML SYRINGE IV PRN (12:30)
[2023-12-07] MEDS ORDERED: diphenhydrAMINE 25MG CAP PO PRN (12:30)
[2023-12-07] MEDS ORDERED: GLUCAGON INJ 1MG VIAL SC PRN (12:30)
[2023-12-07] MEDS ORDERED: MAALOX 30 ML SUSP *UDC PO PRN (12:30)
[2023-12-07] MEDS ORDERED: GLUCOSE 4GM CHEW TABLET PO PRN (12:30)
[2023-12-07] MEDS ORDERED: MOM 30ML SUSPENSION UDC PO PRN (12:30)
[2023-12-07 14:43] VITALS: BP 118/63; TEMP 98.3
[2023-12-07] MEDS: metFORMIN (GLUCOPHAGE) 1000MG TABLET PO SCH (17:48)
[2023-12-07] MEDS: WARFARIN SOD 2MG TAB PO SCH (17:58)
[2023-12-07] MEDS: WARFARIN SOD 5MG TAB PO SCH (17:58)
[2023-12-07] MEDS: LEVEMIR (INSULIN DETEMIR) 1 UNITS/0.01ML SC SCH (21:22)
[2023-12-07] MEDS: INSULIN LISPRO (NovoLOG) PER UNIT SC SCH (21:22)
[2023-12-07] MEDS: METOPROLOL TART 50 MG TAB PO SCH (21:38)
[2023-12-07] MEDS: traZODone 50 MG TAB PO PRN (21:38)
[2023-12-08 06:20] VITALS: BP 137/68; TEMP 98.1; O2SAT 95
[2023-12-08] MEDS: ACETAMINOPHEN TAB 650MG DOSE (2X325MG) PO PRN (08:24)
[2023-12-08] MEDS ORDERED: VITAMIN D 1,000 INTERNATIONAL UNITS TABLET PO SCH (09:00)
[2023-12-08] MEDS ORDERED: NYSTATIN 100,000 UNITS/GM TOPICAL PWD 15GM TOP PRN (09:35)
[2023-12-08] MEDS: OMEPRAZOLE 20MG CAP PO SCH (11:01)
[2023-12-08] MEDS: DULoxetine 30MG CAPSULE (CYMBALTA) PO SCH (11:02)
[2023-12-08] MEDS: GABAPENTIN 300 MG CAP PO SCH (11:02)
[2023-12-08] MEDS: oxyBUTYnin 5 MG TAB PO SCH (11:54)
[2023-12-08] MEDS: DAPAGLIFLOZIN PROPANEDIOL 10MG TABLET (FARXIGA) PO SCH (11:54)
[2023-12-08] MEDS: WARFARIN SOD 5MG TAB PO ONE (16:52)
[2023-12-08] MEDS: INSULIN LISPRO (NovoLOG) PER UNIT SC SCH ×3 (17:38→20:45)
[2023-12-08 18:00] VITALS: BP 134/83; TEMP 98; O2SAT 97
[2023-12-08 19:03] LABS: HEMATOCRIT 47.1 % (36.0-47.0); HEMOGLOBIN 14.6 g/dl (12.0-15.5); MEAN CORPUSCULAR HEMOGLOBIN 25.7 pg (27.0-33.0); MEAN CORPUSCULAR VOLUME 82.8 fl (80.0-96.0); PLATELET COUNT, AUTOMATED 209 10^3/uL (150-450); RED BLOOD COUNT 5.69 10^6/uL (4.00-5.40)
[2023-12-08 19:21] LABS: BLOOD UREA NITROGEN 40 MG/DL (9-23); CALCIUM LEVEL 9.2 MG/DL (8.5-10.1); CARBON DIOXIDE LEVEL 27 MMOL/L (20-31); CHLORIDE LEVEL 101 MMOL/L (98-107); CK-MB VALUE MASS < 1.0 NG/ML (<3.6); CREATININE FOR GFR 0.67 MG/DL (0.55-1.30); GLOMERULAR FILTRATION RATE > 60.0 (>51); GLUCOSE, FASTING 368 MG/DL (60-100); POTASSIUM SERUM 4.6 MMOL/L (3.5-5.1); SODIUM LEVEL 134 MMOL/L (136-145)
[2023-12-08 19:33] LABS: PROCALCITONIN 0.08 ng/ml
[2023-12-08 19:39] LABS: CPK CREATINE PHOSPHOKINASE 48 U/L (34-145); MB/CK RELATIVE INDEX 2.08 (< OR =4)
[2023-12-08] MEDS: MIRTAZAPINE 15 MG TAB PO SCH (20:43)
[2023-12-08] MEDS: BREXPIPRAZOLE 2MG TABLET (REXULTI) PO SCH (20:43)
[2023-12-08] MEDS: hydrOXYzine 50 MG TAB PO SCH (20:45)
[2023-12-08] MEDS: ROSUVASTATIN 10 MG TAB (CRESTOR) PO SCH (20:45)
[2023-12-08] MEDS: LEVEMIR (INSULIN DETEMIR) 1 UNITS/0.01ML SC SCH (20:46)
[2023-12-08] MEDS ORDERED: MIRTAZAPINE 7.5MG PER 1/2 TABLET PO SCH (21:00)
[2023-12-08] MEDS ORDERED: LEVEMIR (INSULIN DETEMIR) 1 UNITS/0.01ML SC SCH (21:00)
[2023-12-09 06:46] VITALS: BP 112/65; TEMP 97.2
[2023-12-09 06:59] LABS: INR 1.19; PROTHROMBIN TIME 14.8 SECONDS (12.5-14.5)
[2023-12-09 07:09] LABS: CHOLESTEROL LEVEL 224 MG/DL (<200); CHOLESTEROL RISK RATIO 8.48 (<5); HDL CHOLESTEROL 26.4 MG/DL (>40); NON-HDL-C 197.6 MG/DL; TRIGLYCERIDES LEVEL 463 MG/DL (<150)
[2023-12-09] MEDS: IBUPROFEN 400MG TAB PO PRN (08:37)
[2023-12-09] MEDS: FUROSEMIDE 20 MG TAB PO SCH (08:51)
[2023-12-09] MEDS ORDERED: ENTER DRUG NAME HERE (PATIENT'S OWN MED) PO SCH (09:00)
[2023-12-09] MEDS: INSULIN LISPRO (NovoLOG) PER UNIT SC SCH (12:06)
[2023-12-09 12:24] LABS: BLOOD UREA NITROGEN 40 MG/DL (9-23); CALCIUM LEVEL 9.4 MG/DL (8.5-10.1); CARBON DIOXIDE LEVEL 31 MMOL/L (20-31); CHLORIDE LEVEL 103 MMOL/L (98-107); CREATININE FOR GFR 0.65 MG/DL (0.55-1.30); GLOMERULAR FILTRATION RATE > 60.0 (>51); GLUCOSE, FASTING 164 MG/DL (60-100); MAGNESIUM LEVEL 1.6 MG/DL (1.8-2.4); POTASSIUM SERUM 4.8 MMOL/L (3.5-5.1); SODIUM LEVEL 140 MMOL/L (136-145)
[2023-12-09 16:10] VITALS: BP 140/74; TEMP 97.5; O2SAT 97
[2023-12-09 16:19] VITALS: BP 123/64; TEMP 97.9; O2SAT 98
[2023-12-09] MEDS: WARFARIN SOD 5MG TAB PO ONE (17:23)
[2023-12-09] MEDS: OMEGA-3 1000MG CAPSULE PO SCH (20:57)
[2023-12-09] MEDS: FENOFIBRATE 145MG TABLET (TRICOR) PO SCH (20:57)
[2023-12-10 06:37] VITALS: BP 146/64; TEMP 96.8; O2SAT 99
[2023-12-10 07:15] LABS: INR 1.29; PROTHROMBIN TIME 15.7 SECONDS (12.5-14.5)
[2023-12-10 07:29] LABS: BLOOD UREA NITROGEN 33 MG/DL (9-23); CALCIUM LEVEL 9.3 MG/DL (8.5-10.1); CARBON DIOXIDE LEVEL 32 MMOL/L (20-31); CHLORIDE LEVEL 106 MMOL/L (98-107); CREATININE FOR GFR 0.53 MG/DL (0.55-1.30); GLOMERULAR FILTRATION RATE > 60.0 (>51); GLUCOSE, FASTING 160 MG/DL (60-100); MAGNESIUM LEVEL 1.6 MG/DL (1.8-2.4); POTASSIUM SERUM 4.7 MMOL/L (3.5-5.1); SODIUM LEVEL 141 MMOL/L (136-145)
[2023-12-10] MEDS: MAGNESIUM OXIDE 400MG TAB (MAG-OX) PO ONE (16:39)
[2023-12-10 16:46] VITALS: BP 131/66; TEMP 97.6; O2SAT 98
[2023-12-10] MEDS: WARFARIN SOD 5MG TAB PO ONE (17:24)
[2023-12-11 06:39] VITALS: BP 138/72; TEMP 97.6; O2SAT 96
[2023-12-11 07:45] LABS: INR 1.49; PROTHROMBIN TIME 17.5 SECONDS (12.5-14.5)
[2023-12-11 07:54] LABS: BLOOD UREA NITROGEN 29 MG/DL (9-23); CALCIUM LEVEL 8.9 MG/DL (8.5-10.1); CARBON DIOXIDE LEVEL 32 MMOL/L (20-31); CHLORIDE LEVEL 108 MMOL/L (98-107); CREATININE FOR GFR 0.57 MG/DL (0.55-1.30); GLOMERULAR FILTRATION RATE > 60.0 (>51); GLUCOSE, FASTING 160 MG/DL (60-100); MAGNESIUM LEVEL 1.5 MG/DL (1.8-2.4); POTASSIUM SERUM 4.5 MMOL/L (3.5-5.1); SODIUM LEVEL 144 MMOL/L (136-145)
[2023-12-11] MEDS: MAGNESIUM OXIDE 400MG TAB (MAG-OX) PO SCH (08:55)
[2023-12-11] MEDS: FUROSEMIDE 40 MG TAB PO SCH (08:56)
[2023-12-11 17:01] VITALS: BP 140/68; TEMP 98; O2SAT 95
[2023-12-11] MEDS: WARFARIN SOD 5MG TAB PO ONE (17:15)
[2023-12-12 06:36] VITALS: BP 147/71; TEMP 97.5; O2SAT 97
[2023-12-12 06:53] LABS: INR 1.72; PROTHROMBIN TIME 19.6 SECONDS (12.5-14.5)
[2023-12-12 07:07] LABS: BLOOD UREA NITROGEN 28 MG/DL (9-23); CALCIUM LEVEL 9.2 MG/DL (8.5-10.1); CARBON DIOXIDE LEVEL 33 MMOL/L (20-31); CHLORIDE LEVEL 107 MMOL/L (98-107); CREATININE FOR GFR 0.68 MG/DL (0.55-1.30); GLOMERULAR FILTRATION RATE > 60.0 (>51); GLUCOSE, FASTING 204 MG/DL (60-100); MAGNESIUM LEVEL 1.6 MG/DL (1.8-2.4); POTASSIUM SERUM 4.6 MMOL/L (3.5-5.1); SODIUM LEVEL 144 MMOL/L (136-145)
[2023-12-12 08:08] VITALS: BP 127/60
[2023-12-12] MEDS: VITAMIN D 1,000 INTERNATIONAL UNITS TABLET PO SCH (08:14)
[2023-12-12] MEDS: PILL CUTTER 1 EACH XX PRN (08:16)
[2023-12-12] MEDS: WARFARIN SOD 5MG TAB PO ONE (16:03)
[2023-12-12 18:21] VITALS: BP_SYST 71; TEMP 96.8; O2SAT 99
[2023-12-13 06:41] VITALS: BP 150/70; TEMP 97.2; O2SAT 94
[2023-12-13 07:04] LABS: INR 1.83; PROTHROMBIN TIME 20.5 SECONDS (12.5-14.5)
[2023-12-13 07:13] LABS: BLOOD UREA NITROGEN 21 MG/DL (9-23); CALCIUM LEVEL 9.1 MG/DL (8.5-10.1); CARBON DIOXIDE LEVEL 34 MMOL/L (20-31); CHLORIDE LEVEL 106 MMOL/L (98-107); CREATININE FOR GFR 0.58 MG/DL (0.55-1.30); GLOMERULAR FILTRATION RATE > 60.0 (>51); GLUCOSE, FASTING 167 MG/DL (60-100); MAGNESIUM LEVEL 1.7 MG/DL (1.8-2.4); POTASSIUM SERUM 4.4 MMOL/L (3.5-5.1); SODIUM LEVEL 141 MMOL/L (136-145)
[2023-12-13 08:38] VITALS: BP 138/82
[2023-12-13 08:46] VITALS: BP 138/82
[2023-12-13] MEDS ORDERED: CYMB1CAP5 PO (09:33)
[2023-12-13] MEDS ORDERED: FISH1CAP26 PO (09:33)
[2023-12-13] MEDS ORDERED: REXU1TAB4 PO (09:33)
[2023-12-13] MEDS ORDERED: MIRT-10 PO (09:33)
[2023-12-13] MEDS ORDERED: TRAZ-252 PO (09:33)
[2023-12-13] MEDS ORDERED: JANT5TAB PO (09:33)
[2023-12-13] MEDS ORDERED: FURO40TA2 PO (09:33)
[2023-12-13] MEDS ORDERED: DULO1CAP6 PO (09:34)
[2023-12-13] MEDS ORDERED: MAGN400T2 PO (09:47)
[2023-12-13] MEDS: WARFARIN SOD 5MG TAB PO ONE (12:50)
[2023-12-13] MEDS ORDERED: WARFARIN SOD 5MG TAB PO SCH (17:00)
== END 2023-12-13 13:59 | disposition home or self-care (01) | DRG 751 ==
LOC: EDBD 07:12 → M ED 09:50 → M ED INP 12-07 12:28 → M PSY 12-07 14:55
PROVIDERS: ADMIT Student in an Organized Health Care Education/Training Program; ATTEND Student in an Organized Health Care Education/Training Program
PROC: B246ZZZ Ultrasonography of Right and Left Heart (ICD-10-PCS; principal; 2023-12-09)
DX: F33.1 Major depressive disorder, recurrent, moderate (principal); I11.0 Hypertensive heart disease with heart failure; I50.9 Heart failure, unspecified; R45.851 Suicidal ideations; E11.9 Type 2 diabetes mellitus without complications; Z68.42 Body mass index [BMI] 45.0-49.9, adult; K76.0 Fatty (change of) liver, not elsewhere classified; F41.1 Generalized anxiety disorder; E78.5 Hyperlipidemia, unspecified; G47.33 Obstructive sleep apnea (adult) (pediatric); K21.9 Gastro-esophageal reflux disease without esophagitis; E78.1 Pure hyperglyceridemia; E66.9 Obesity, unspecified; L40.9 Psoriasis, unspecified; Z81.3 Family history of other psychoactive substance abuse and dependence; Z79.4 Long term (current) use of insulin; Z79.01 Long term (current) use of anticoagulants; Z79.899 Other long term (current) drug therapy; Z88.2 Allergy status to sulfonamides; Z91.040 Latex allergy status; Z95.3 Presence of xenogenic heart valve

== ENCOUNTER → 2023-12-30 | Outpatient (CLI) | payer BC ==
[~2023-12-30] MED LIST changes: +CYMB1CAP5 PO; +DULO1CAP6 PO; +FISH1CAP26 PO; +FURO40TA2 PO; +JANT5TAB PO; +MAGN400T2 PO; +MIRT-10 PO; +REXU1TAB4 PO; +TRAZ-252 PO; +VITA100093 PO; +WARF4TAB52 PO
== END ==
LOC: M LAB 15:04
PROVIDERS: ATTEND Nurse Practitioner Family
DX: L40.0 Psoriasis vulgaris (principal)